=== PATIENT | female | born 1975 | race Caucasian/White ===

== ENCOUNTER → 2019-04-26 09:17 | Outpatient (CLI) | payer OTHER, SELFPAY ==
--- NOTE | ~2019-04-26 | MM_ITS ---
EXAMINATION: MM diagnostic maykel RT w marcelo HISTORY: Six-month follow-up for probably benign focal asymmetry of the right breast. TECHNIQUE: Craniocaudal, mediolateral, and mediolateral oblique 3-D tomosynthesis images of the right breast were performed and synthetic 2-D images were generated. Spot compression views are also obtai ricci. CAD analysis was submitted and interpreted. COMPARISON: 09/01/2018, 08/27/2018 BREAST PARENCHYMAL COMPOSITION: The breasts are heterogeneously dense, which may obscure small masses . FINDINGS: No persistent focal asymmetry is identified in the right breast. There is no evidence of roach spicious mass, calcification, or architectural distortion to suggest malignancy. There has been no suspicious interval change. IMPRESSION: 1. No persistent focal asymmetry of the right breast. No mammographic evidence of malignancy. 2. Recommend routine screening mammography. BI-RADS Category 1: Negative Reviewed, dictated and finalized at location A.
== END ==
PROVIDERS: PCP Family Medicine; Visit Provider Obstetrics & Gynecology
DX: R92.8 Other abnormal and inconclusive findings on diagnostic imaging of breast (principal)
CPT/HCPCS: 77061; 77065; G0279

== ENCOUNTER 2019-12-10 03:16 | Outpatient (CLI) | payer OTHER, SELFPAY ==
[2019-12-10 17:45] LABS: SARS-CoV-2 RNA PCR Negative
== END 2019-12-10 03:17 | disposition home or self-care (01) ==
LOC: ANHCOVIDDT 03:16
PROVIDERS: PCP Family Medicine; Visit Provider Obstetrics & Gynecology
DX: Z01.812 Encounter for preprocedural laboratory examination (principal); Z20.828 Contact with and (suspected) exposure to other viral communicable diseases
CPT/HCPCS: 87635; C9803; U0003

== ENCOUNTER 2019-12-13 01:21 | Day surgery (SDC) | payer OTHER, SELFPAY ==
[2019-12-02 11:10] VITALS: BMI 30.4
--- NOTE | 2019-12-10 09:41 | PM.IMHP ---
H&P: HPI History of Present Illness Date/Time: 12/10/19 09:41 Chief complaint: Left Adnexal Mass Narrative: Mari Lees is a 44 year old female with left solid adnexal mass, irregular heavy bleeding despite being on OCP for years, and desires sterilization. Review of Systems Review of Systems: All systems reviewed & are unremarkable except as noted in HPI and below PMFSH Past Medical History Medical History Adnexal mass Melanoma Migraines Surgical History Surgical History H/O lumpectomy [place] teeth removed Family History Family History Father Family history of malignant neoplasm Mother Cervical cancer Hypertension Other Diabetes mellitus Grandparent Cerebrovascular accident Social History Social History Smoking status: Never smoker Second hand tobacco smoke exposure: No Alcohol intake: never Substance use: never Spiritual care concerns: Yes (REFUSES BLOOD PRODUCTS) Meds Home Medications and Allergies Home Medications Medication Instructions Recorded Confirmed Type cetirizine 10 mg tablet 10 mg PO DAILY 10/22/19 12/02/19 History multivitamin 1 tablet PO DAILY 10/22/19 12/02/19 History norgestimate-ethinyl estradiol 1 tablet PO DAILY 10/22/19 12/02/19 History 0.18 mg/0.215mg/0.25mg-35 mcg(28)tablet B-complex with vitamin C 1 cap PO DAILY 11/23/19 12/02/19 History ascorbate calcium (vitamin C) 500 500 mg PO DAILY 11/23/19 12/02/19 History mg tablet cholecalciferol (vitamin D3) 100 100 mcg PO DAILY 11/23/19 12/02/19 History mcg (4,000 unit) capsule ascorbic acid-collagen [Collagen 1 cap PO DAILY 12/02/19 12/02/19 History Plus Vitamin C] Allergies Allergy/AdvReac Type Severity Reaction Status Date / Time No Known Allergies Allergy Verified 12/07/19 14:17 Exam Const: General: healthy appearing and no acute distress Resp: Auscultation: clear to auscultation bilaterally Cardio: Rate: regular rate Rhythm: regular rhythm GI: Inspection: non-distended GI Palp: Yes Soft to palpation and No Tenderness to palpation present (GI) : External Female Exam: normal external appearance and No lesion Speculum Exam - Vagina: normal appearance of the vagina Speculum Exam - Cervix: normal appearance of the cervix Bimanual exam- vagina & uterus: normal bimanual exam, uterine size normal, uterine mobility normal, uterine shape normal and non-tender Bimanual Exam- Adnexa, other: normal adnexae and No adnexal tenderness Psych: Mental Status: mental status grossly normal Assessment and Plan Assessment and plan (1) Adnexal mass: Code(s): N94.89 - Other specified conditions associated with female genital organs and menstrual cycle Status: Acute Assessment and Plan: She opts for laparoscopic left oophorectomy. She signed consent for l/S left oophorectomy, bilateral tubal ligation, D&C, hysteroscopy, and endometrial ablation after R/B/C/A discussed. Risks include but are not limited to bleeding; transfusion (which she would NOT accept); infection; damage to bowel, bladder, ureter, blood vessels; need for larger incision and/or longer recovery time; risk of anesthesia; risk of up to 1%; increased risk of ectopic should occur; and risk of regret. She expressed understanding, but would not accept blood products under any circumstances. She specifically says she would rather bleed to than accept blood. She wishes to proceed with procedures. (2) Menometrorrhagia: Code(s): N92.1 - Excessive and frequent menstruation with irregular cycle Status: Acute Assessment and Plan: She opts for endometrial ablation (3) Contraception management: Code(s): Z30.9 - Encounter for contraceptive management
[2019-12-13] VITALS (8 sets, daily range): BP systolic 130–157; BP diastolic 71–97; PULSE 57–82; RESP 10–17; TEMP 36.1–36.8; O2SAT 98–100
--- NOTE | 2019-12-13 08:14 | P.PNAN_ITS ---
Anes - Initial Pre Proc Eval Procedure: Operation Date: 12/13/19 12:00 Proposed Procedures p Hysteroscopy, Dilation and Curettage, Kat Endometrial Ablation - Melony Pinedo MD s Laparoscopic Bilateral Tubal Sterilization With Filshie Clips, Left Laparoscopic Oophorectomy - Melony Pinedo MD Date/Time: 12/13/19 08:14 Surgeon: Melony Pinedo MD Pre Op Diagnosis: Left Adnexal Mass Patient Data Age: 44 Gender: F Height: 1.65 m Weight: 83.01 kg Allergies Allergy/AdvReac Type Severity Reaction Status Date / Time No Known Allergies Allergy Verified 12/13/19 11:06 Home Medications Medication Instructions Recorded Confirmed Type cetirizine 10 mg tablet 10 mg PO DAILY 10/22/19 12/02/19 History multivitamin 1 tablet PO DAILY 10/22/19 12/02/19 History norgestimate-ethinyl estradiol 1 tablet PO DAILY 10/22/19 12/02/19 History 0.18 mg/0.215mg/0.25mg-35 mcg(28)tablet B-complex with vitamin C 1 cap PO DAILY 11/23/19 12/02/19 History ascorbate calcium (vitamin C) 500 500 mg PO DAILY 11/23/19 12/02/19 History mg tablet cholecalciferol (vitamin D3) 100 100 mcg PO DAILY 11/23/19 12/02/19 History mcg (4,000 unit) capsule ascorbic acid-collagen [Collagen 1 cap PO DAILY 12/02/19 12/02/19 History Plus Vitamin C] Patient hx anesthesia problems: none Family hx anesthesia problems: none PMFSH Past Medical History Medical History Adnexal mass Melanoma Migraines Surgical History Surgical History H/O lumpectomy [place] teeth removed Family History Family History Father Family history of malignant neoplasm Mother Cervical cancer Hypertension Other Diabetes mellitus Grandparent Cerebrovascular accident Social History Social History Smoking status: Never smoker Second hand tobacco smoke exposure: No Alcohol intake: never Substance use: never Spiritual care concerns: Yes (REFUSES BLOOD PRODUCTS) Anes - Eval Final PreProcedure Day of Procedure 12/13/19 08:14 Patient weight: obese Heart: regular rate and rhythm Lungs: clear to auscultation and normal air movement Airway: Mallampati scale class II Neurological: alert and oriented Last oral intake: >/= 8 hours ASA classification: II Emergent: no Anesthetic plan: proceed Anesthesia type and monitoring: general ETT and standard monitoring Informed Consent: The patient's anesthetic plan and its attendant risks and benefits were discussed with the patient/family/POA. Questions were solicited and answers provided to the satisfaction of the patient/family/POA.
[2019-12-13] MEDS: ACETAMINOPHEN 500 MG TABLET 1000 MG PO (10:50)
[2019-12-13] MEDS: KETOROLAC 15 MG/ML VIAL (*BKC) IV PUSH (10:50)
[2019-12-13] MEDS: LACTATED RINGERS 1,000 ML 30 ML IV CONT ×2 (10:52→13:10)
--- NOTE | 2019-12-13 11:30 | WPDHPUPDATE1 ---
History and Physical Update Update Date/Time: 12/13/19 11:30 History and Physical has been reviewed, including an updated exam of the patient. There are NO changes in the patient's condition. Risks, benefits, and alternatives have been discussed and questions answered. Patient agrees to proceed with procedure.
--- NOTE | 2019-12-13 11:53 | PM.PROC ---
Procedure Note - Detailed Date of procedure: 12/13/19 Pre-op diagnosis: Left Adnexal Mass left adnexal mass, menometrorrhagia, desires sterilization Post-op diagnosis: same Procedure performed: L/S left oophorectomy, bilateral tubal occlusion with Filshie clips, D&C, hysteroscopy, Kat endometrial ablation Description of procedure: She was taken to the operating room where general anesthesia was obtained. She was prepared and draped in the normal sterile fashion in the dorsal lithotomy position. Marcaine was injected infraumbilically, and a 5 mm skin incision was made in the infraumbilical fold with a scalpel. A 5 mm non bladed trocar was placed with the camera in the trocar under direct visualization into the peritoneal cavity. Insufflation was begun. She was placed in Trendelenburg. A 5 mm trocar was placed in the right lower quadrant under direct visualization. Inspection of the pelvis revealed the findings as noted above. A 10 mm trocar was then placed in the midline suprapubic region under direct visualization. A Filshie clip was placed on the mid isthmic portion of the right fallopian tube, making sure the entire circumference of the tube was contained in the clip. The same procedure was then performed on the left fallopian tube. The Harmonic scalpel then used to take down some adhesions between the colon and left pelvic sidewall. There were a few more adhesions between the left ovary and the epiploic fat. Once the ovary was isolated, the infundibulopelvic ligament was grasped, coagulated, and transected using the Harmonic scalpel. The utero-ovarian ligament was then divided, and the ovary was completely free of the surrounding tissue. An endo-pouch was placed through the suprapubic trocar. The ovary was placed inside the pouch. The pouch was brought easily through the suprapubic incision. All operative sites were inspected and found to be hemostatic. The Juan F-Aneesh device, along with an 0 Vicryl, was used to close the fascia of the suprapubic incision. The pneumoperitoneum was allowed to escape. All trocars were removed. All 3 skin incisions were closed using 4 0 Monocryl in subcuticular fashion. Attention was then turned to the vagina. A bivalve speculum was placed in the vagina. The cervix was grasped with a single-tooth tenaculum on the anterior lip. The uterus sounded to 8 cm. The cervix was dilated to allow passage of the hysteroscope, which revealed a normal appearing endometrial cavity with both tubal ostia identified. A 8. Hegar dilator was used to measure the endocervical canal at 3 cm, yielding an entire cavity length of 5 cm. The minora device was introduced into the endometrial cavity. The cavity assessment passed on the 1st attempt. The ablation ran for 2 minutes. A 2nd look was taken with the hysteroscope, which revealed a shallow uterine septum at the fundus. The septum had not been visible prior to doing the ablation. However, the ablation appeared adequate. It appeared to have covered the vast majority of the endometrial cavity, with the exception of the upper corners of the cornual regions. The hysteroscope was removed. The tenaculum was removed from the cervix. Both tenaculum sites were bleeding slightly. Pressure was held with ring forceps and Allis clamp until excellent hemostasis was assured. All instruments were removed from the vagina. She tolerated the procedure well. Sponge, lap, needle, and instrument counts were correct x2. She was taken to recovery room in stable condition. Anesthesia: GETA Surgeon: Melony Pinedo MD Drains: No Packing: No Pathology: yes Complications: No immediate complications Condition: stable Disposition: PACU Findings: No visible left ovarian mass (left ovary larger than average); normal fallopian tubes, right ovary, uterus, liver, and gall bladder; normal endometrial cavity prior to ablation; shallow uterine septum visible after ablation with adequate appearing ablation
[2019-12-13] MEDS: BUPIVACAINE/EPINEPHRINE 0.5% 10 ML VIAL INFILTRATE (12:57)
[2019-12-13] MEDS: KETOROLAC 30 MG/ML VIAL (*BKC) IV PUSH (12:58)
--- NOTE | 2019-12-13 13:43 | SUR.PHASEII ---
RN removed O2 right after 1330 vitals were charted. O2 is currently 100% on room air.
--- NOTE | 2019-12-13 14:10 | SUR.PHASEII ---
[id number]- Call to Dr. Stinson to obtain pain medication for patient. Patient complaining of cramping/discomfort to right lower abdomen and rating pain 6/10 on numeric scale. Orders for oxycodone 5MG IR once.
[2019-12-13] MEDS: oxyCODONE HCL (*CRX) 5 MG TAB IR PO (14:16)
== END 2019-12-13 14:52 | disposition home or self-care (01) ==
PROVIDERS: PCP Family Medicine; Visit Provider Obstetrics & Gynecology
PROC: 0U5B8ZZ Destruction of Endometrium, Via Natural or Artificial Opening Endoscopic (ICD-10-PCS; CPT 58563; principal; 2019-12-13 12:00)
PROC: (CPT 58671; 2019-12-13 12:00)
DX: N92.1 Excessive and frequent menstruation with irregular cycle (principal); Z30.2 Encounter for sterilization; N83.8 Other noninflammatory disorders of ovary, fallopian tube and broad ligament; E66.9 Obesity, unspecified; Z68.29 Body mass index [BMI] 29.0-29.9, adult
CPT/HCPCS: 58563; 58671; 58661; 88305; A9270; J0330; J1100; J1200; J1885; J2250; J2405; J2704; J3010; J7030; J7120

== ENCOUNTER → 2020-10-13 17:19 | Outpatient (CLI) | payer OTHER, SELFPAY ==
--- NOTE | ~2020-10-13 | MM_ITS ---
EXAMINATION: MM screening maykel BI w marcelo HISTORY: Screening TECHNIQUE: Craniocaudal and mediolateral oblique 3-D tomosynthesis images were obtained and synthetic 2-D images were generated. CAD analysis was submitted and interpreted. COMPARISON: 08/27/2018 BREAST PARENCHYMAL COMPOSITION: The breasts are heterogeneously dense, which may obscure small masses . FINDINGS: There is no evidence of suspicious mass, calcification, or architectural distortion to sugg est malignancy in either breast. There has been no suspicious interval change. IMPRESSION: 1. No mammographic evidence of malignancy. 2. Recommend routine screening mammography in one year. BI-RADS Category 1: Negative Reviewed, dictated and finalized at location A.
== END ==
PROVIDERS: Visit Provider Obstetrics & Gynecology
DX: Z12.31 Encounter for screening mammogram for malignant neoplasm of breast (principal)
CPT/HCPCS: 77063; 77067

== ENCOUNTER 2022-06-18 08:09 | Outpatient (CLI) | payer BC, SELFPAY ==
[2022-06-18 19:29] LABS: Alanine Aminotransferase 21 U/L (6-35); Albumin Level 4.6 g/dL (3.5-5.1); Alkaline Phosphatase 60 U/L (38-126); Anion Gap 5 mmol/L (8-16); Aspartate Amino Transferase 44 U/L (14-36); Bilirubin,Total 0.6 mg/dL (0.2-1.3); Blood Urea Nitrogen 30 mg/dL (7-17); Calcium 9.1 mg/dL (8.4-10.2); Carbon Dioxide 33 mmol/L (22-30); Chloride 100 mmol/L (98-107); Cholesterol 164 mg/dL (0-200); Estimated Glomerular Filt Rate > 60; Glucose 86 mg/dL (65-110); HDL Direct 35 mg/dL; Potassium 4.6 mmol/L (3.4-5.0); Sodium 138 mmol/L (137-145); Triglycerides 108 mg/dL (<150)
[2022-06-18 19:29] LABS: Basophils Absolute Auto 0.1 K/mm3 (0.0-0.1); Basophils Percent Auto 1.1 % (0.2-1.2); Eosinophils Absolute Auto 0.1 K/mm3 (0-0.3); Eosinophils Percent Auto 1.1 % (0-4.4); Hematocrit 40.4 % (37.0-47.0); Hemoglobin 12.9 g/dL (12.0-15.0); Immature Granulocyte Absolute 0.01 K/mm3 (0.00-0.031); Immature Granulocyte Percent A 0.1 % (0-0.5); Lymphocytes Absolute Auto 2.34 K/mm3 (0.9-3.2); Lymphocytes Percent Auto 30.8 % (18.3-44.2); Mean Corpuscular HGB Conc 31.9 g/dl (32-36); Mean Corpuscular Hemoglobin 29.4 pg (26-34); Mean Platelet Volume 10.7 fl (7.4-10.4); Monocytes Absolute Auto 0.5 K/mm3 (0.1-0.6); Monocytes Percent Auto 7.1 % (2.6-8.5); Neutrophils Absolute Auto 4.6 K/mm3 (1.3-6.7); Neutrophils Percent Auto 59.8 % (45.5-73.1); Platelet Count Result 341 k/mm3 (150-375); Red Blood Count 4.39 M/mm3 (4.2-5.4); Red Cell Distribution Width 12.8 % (11.5-14.5); White Blood Count 7.6 K/mm3 (4.5-10.0)
[2022-06-18 19:42] LABS: LDL Cholesterol Direct 99 mg/dL
== END 2022-06-18 08:10 | disposition home or self-care (01) ==
LOC: ANHBWCLAB 08:10
PROVIDERS: PCP Family Medicine; Visit Provider Nurse Practitioner
DX: Z00.00 Encounter for general adult medical examination without abnormal findings (principal); R53.83 Other fatigue
CPT/HCPCS: 36415; 80053; 80061; 84443; 85025

== ENCOUNTER → 2022-09-02 12:36 | Outpatient (CLI) | payer BC, SELFPAY ==
--- NOTE | ~2022-09-02 | MM_ITS ---
EXAMINATION: MM screening maykel BI w marcelo HISTORY: Screening TECHNIQUE: Craniocaudal and mediolateral oblique 3-D tomosynthesis images were obtained and synthetic 2-D images were generated. CAD analysis was submitted and interpreted. COMPARISON: Comparison to multiple prior studies sequentially, with oldest reviewed study dated 08/27. BREAST PARENCHYMAL COMPOSITION: Breast composed of scattered areas of fibroglandular density FINDINGS: There is no evidence of suspicious mass, calcification, or architectural distortion to sugg est malignancy in either breast. There has been no suspicious interval change. IMPRESSION: 1. No mammographic evidence of malignancy. 2. Recommend routine screening mammography in one year. BI-RADS Category 1: Negative Reviewed, dictated and finalized at location A.
== END ==
PROVIDERS: PCP Obstetrics & Gynecology; Visit Provider Obstetrics & Gynecology
DX: Z12.31 Encounter for screening mammogram for malignant neoplasm of breast (principal)
CPT/HCPCS: 77063; 77067

== ENCOUNTER 2023-06-25 07:14 | Outpatient (CLI) | payer BC, SELFPAY ==
[2023-06-25 20:56] LABS: Alanine Aminotransferase 17 U/L (6-35); Albumin Level 4.4 g/dL (3.5-5.1); Alkaline Phosphatase 57 U/L (38-126); Anion Gap 7 mmol/L (4-12); Aspartate Amino Transferase 45 U/L (14-36); Bilirubin,Total 0.5 mg/dL (0.2-1.3); Blood Urea Nitrogen 24 mg/dL (7-17); Calcium 9.2 mg/dL (8.4-10.2); Carbon Dioxide 28 mmol/L (22-30); Chloride 105 mmol/L (98-107); Cholesterol 151 mg/dL (0-200); Estimated Glomerular Filt Rate > 60; Glucose 80 mg/dL (65-110); HDL Direct 33 mg/dL; Potassium 3.8 mmol/L (3.4-5.0); Sodium 140 mmol/L (137-145); Triglycerides 95 mg/dL (<150)
[2023-06-25 20:57] LABS: Hematocrit 39.9 % (37.0-47.0); Hemoglobin 12.4 g/dL (12.0-15.0); Mean Corpuscular HGB Conc 31.1 g/dl (32-36); Mean Corpuscular Hemoglobin 29.5 pg (26-34); Mean Platelet Volume 10.9 fl (7.4-10.4); Platelet Count Result 314 k/mm3 (150-375); White Blood Count 6.9 K/mm3 (4.5-10.0)
[2023-06-25 22:01] LABS: Folic Acid > 20.0 ng/mL (2.76->20)
[2023-06-25 22:31] LABS: LDL Cholesterol Direct 96 mg/dL
[2023-06-25 22:40] LABS: Vitamin D 25 Hydroxy 95.3 ng/mL
== END 2023-06-25 07:15 | disposition home or self-care (01) ==
LOC: ANHBWCLAB 07:16
PROVIDERS: PCP Nurse Practitioner Adult Health; Visit Provider Nurse Practitioner Adult Health
DX: Z13.9 Encounter for screening, unspecified (principal); R53.83 Other fatigue
CPT/HCPCS: 36415; 80053; 80061; 82306; 82607; 82746; 84443; 85027

== ENCOUNTER 2025-01-04 11:14 | Outpatient (CLI) | payer BC, SELFPAY ==
--- NOTE | ~2025-01-04 | MM_ITS ---
EXAMINATION: MM screening maykel BI w marcelo HISTORY: Screening TECHNIQUE: Craniocaudal and mediolateral oblique 3-D tomosynthesis images were obtained and synthetic 2-D images were generated. CAD analysis was submitted and interpreted. COMPARISON: Comparison to multiple prior studies sequentially, with oldest reviewed study dated . BREAST PARENCHYMAL COMPOSITION: Not dense: There are scattered areas of fibroglandular density. FINDINGS: There is no evidence of suspicious mass, calcification, or architectural distortion to suggest malignancy in either breast. There has been no suspicious interval change. IMPRESSION: 1. No mammographic evidence of malignancy. 2. Recommend routine screening mammography in one year. BI-RADS Category 1: Negative Reviewed, dictated and finalized at location O. COST ESTIMATOR
== END 2025-01-04 11:15 | disposition home or self-care (01) ==
LOC: MICIMG 11:15
PROVIDERS: PCP Nurse Practitioner Adult Health; Visit Provider Nurse Practitioner Family
DX: Z12.31 Encounter for screening mammogram for malignant neoplasm of breast (principal)
CPT/HCPCS: 77063; 77067